=== PATIENT | female | born 1960 | race Caucasian/White ===

== ENCOUNTER 2018-08-13 06:24 | Day surgery (SDC) | payer BC ==
[2018-08-13] VITALS (7 sets, daily range): BP systolic 103–120; BP diastolic 48–73; PULSE 58–67; TEMP 97.4–97.9
[~2018-08-13] VITALS: Ht 165.1 cm; Wt 78.2 kg
[2018-08-13] MEDS ORDERED: VITAMIN D 1001000 IU PO (07:33)
[2018-08-13] MEDS ORDERED: LIPITOR20 MG PO (07:33)
[2018-08-13] MEDS ORDERED: ASPIRIN 81M81 MG/TA2 PO (07:34)
[2018-08-13] MEDS ORDERED: ADVIL200 MG PO (07:34)
--- NOTE | 2018-08-13 14:25 | NUR ---
The patient arrived back to [facility] from the recovery room at this time. The patient appears drowsy but arouses easily to her name. The patient's post operative vital signs were started time. The patient agrees to try some ice water at this time. The patient's dressing to her left breast appears clean, dry, and intact. The patient has a d[place] drain in place to her left breast which is set to bulb suction and has minimal drainage in the tubing and bulb at this time. The patient's family was brought back to be at her bedside. The patient's call light is within reach. Will continue to monitor the patient.
[2018-08-13] MEDS ORDERED: NORCO 325 MG-51 TAB PO (14:39)
--- NOTE | 2018-08-13 14:40 | NUR ---
The patient appears to be tolerating the ice water well. Vital signs appear stable. The patient's family remains at her bedside at this time. Will continue to monitor the patient.
--- NOTE | 2018-08-13 14:55 | NUR ---
The patient was given some more ice water and some chocolate pudding to try at this time. The patient continues to deny any pain or nausea at this time. Call light is within reach. Will continue to monitor the patient.
--- NOTE | 2018-08-13 15:10 | NUR ---
The patient is sitting up in bed eating her food and drink and appears to be resting comfortably at this time. The patient's family remains at her bedside at this time. Call light is within reach. Will continue to monitor the patient.
--- NOTE | 2018-08-13 15:44 | NUR ---
The patient has finished her pudding and was given a fresh glass of ice water at this time. The patient and her family were educated regarding her d[place] drain and how to care for and empty the drain at home. They all verbalized understanding and have no questions for the nurse at this time. Will continue to monitor the patient.
--- NOTE | 2018-08-13 16:09 | NUR ---
The patient ambulated to the bathroom with the stand by assistance of one nurse and appeared to tolerate the activity well. The nurse instructed the patient that she could ambulate back to her room independently when finished if she felt comfortable or could pull the red assistance cord in the bathroom if she would like the nurse to walk back with her. The nurse also instructed the patient that she may get dressed if she is success in her attempt to void.
--- NOTE | 2018-08-13 16:20 | NUR ---
Discharge instructions were reviewed with the patient and her family at this time. They all verbalized understanding and have no questions for the nurse at this time. The patient's IV to her right forearm was removed and a pressure dressing was applied to the site. The nurse instructed the patient to get dressed and notify the staff when she is ready to be escorted out.
--- NOTE | 2018-08-13 16:30 | NUR ---
The patient was escorted out via wheelchair to a private vehicle by VAISHNAVI Barnett. The patient's belongings and discharge paperwork were sent with her. The patient's is present to drive her home.
== END 2018-08-13 16:30 | disposition home or self-care (01) ==
LOC: SDCO 06:24
DX: C50.512 Malignant neoplasm of lower-outer quadrant of left female breast (principal); C77.3 Secondary and unspecified malignant neoplasm of axilla and upper limb lymph nodes; Z17.0 Estrogen receptor positive status [ER+]; Z80.3 Family history of malignant neoplasm of breast; Z80.51 Family history of malignant neoplasm of kidney; Z82.49 Family history of ischemic heart disease and other diseases of the circulatory system; Z83.3 Family history of diabetes mellitus; Z88.0 Allergy status to penicillin; Z79.899 Other long term (current) drug therapy; Z79.82 Long term (current) use of aspirin; E78.5 Hyperlipidemia, unspecified; E55.9 Vitamin D deficiency, unspecified
CPT/HCPCS: A9541; J0690; J1100; J1885; J2250; J2405; J2704; J2795; J3010; J7120; Q9968

== ENCOUNTER 2018-08-26 12:03 | Day surgery (SDC) | payer BC ==
[~2018-08-26] VITALS: Ht 165.1 cm; Wt 79.4 kg
[~2018-08-26 12:03] MED LIST: ADVIL200 MG PO; ASPIRIN 81M81 MG/TA2 PO; LIPITOR20 MG PO; NORCO 325 MG-51 TAB PO; VITAMIN D 1001000 IU PO
[2018-08-26 12:35] VITALS: BP 117/67; PULSE 61; TEMP 98
[2018-08-26 16:15] VITALS: BP 111/60; PULSE 60; TEMP 98.2
[2018-08-26 16:30] VITALS: BP 116/67; PULSE 68
--- NOTE | 2018-08-26 16:30 | NUR ---
RETURNS FROM PACU VIA CART TO [facility]. ALERT AND ORIENTED X 4. FAMILY AT BEDSIDE. DENIES PAIN OR NAUSEA. GIVEN PUDDING AND WATER. DRESSINGS ARE CLEAN, DRY AND INTACT. CALL LIGHT IN REACH.
[2018-08-26 16:44] VITALS: BP 116/72; PULSE 64; TEMP 98.2
--- NOTE | 2018-08-26 16:44 | NUR ---
TOLERATED PUDDING AND WATER. IV DC'D. FAMILY AT BEDSIDE, CALL LIGHT IN REACH.
[2018-08-26 17:00] VITALS: BP 116/72; PULSE 70; TEMP 98
--- NOTE | 2018-08-26 17:00 | NUR ---
DISCHARGE INSTRUCTIONS GIVEN TO PATIENT AND FAMILY. ALL QUESTIONS ANSWERED AND PATIENT/FAMILY VERBALIZED UNDERSTANDING. IV DC'D. PATIENT TAKEN BY WHEELCHAIR TO PERSONAL [facility]HICHLE.
== END 2018-08-26 17:00 | disposition home or self-care (01) ==
LOC: SDCO 12:03
DX: C50.512 Malignant neoplasm of lower-outer quadrant of left female breast (principal); Z79.82 Long term (current) use of aspirin; E78.5 Hyperlipidemia, unspecified; Z82.5 Family history of asthma and other chronic lower respiratory diseases; Z82.49 Family history of ischemic heart disease and other diseases of the circulatory system; Z80.3 Family history of malignant neoplasm of breast; Z80.51 Family history of malignant neoplasm of kidney; Z83.3 Family history of diabetes mellitus; Z17.0 Estrogen receptor positive status [ER+]; Z88.0 Allergy status to penicillin
CPT/HCPCS: C1788; J0690; J1100; J1644; J1885; J2405; J2704; J3010; J7120